=== PATIENT | male | born 1965 | race Caucasian/White ===

== ENCOUNTER 2018-12-30 09:59 | Emergency (ER) | payer BC, OTHER ==
[~2018-12-30] VITALS: Ht 190.5 cm; Wt 150.0 kg
[~2018-12-30 09:59] MED LIST: LOTENSIN10 MG PO; TOPROL XL50 MG PO
[2018-12-30 11:27] VITALS: BP 144/80; PULSE 63; TEMP 97.2
== END 2018-12-30 11:27 | disposition home or self-care (01) ==
LOC: COL.ER 09:59
DX: S00.01XA Abrasion of scalp, initial encounter (principal); I10 Essential (primary) hypertension; Z88.0 Allergy status to penicillin; Z98.890 Other specified postprocedural states; W22.8XXA Striking against or struck by other objects, initial encounter; Y92.009 Unspecified place in unspecified non-institutional (private) residence as the place of occurrence of the external cause

== ENCOUNTER 2019-03-25 05:56 | Day surgery (SDC) | payer BC, OTHER ==
[~2019-03-25] VITALS: Ht 190.5 cm; Wt 152.8 kg
[~2019-03-25 05:56] MED LIST changes: -LOTENSIN10 MG PO; +LOTENSIN20 MG PO; +TOPROL XL200 MG PO; -TOPROL XL50 MG PO
[2019-03-25 06:24] VITALS: BP 149/89; PULSE 62; TEMP 98
[2019-03-25] MEDS ORDERED: HCTZ12.5TAB PO (06:30)
[2019-03-25 08:05] VITALS: BP 155/80; PULSE 73
--- NOTE | 2019-03-25 08:05 | NUR ---
TO BAY 1 PER CART FROM ENDOSCOPY. ALERT ORIENTED X3, TALKING TO STAFF AND . AMBULATED TO RECLINER WITH ASSIST AND TOLERATED WELL. RECEIVED MUFFIN AND AGUSTINA.
[2019-03-25 08:20] VITALS: BP 142/72; PULSE 69
--- NOTE | 2019-03-25 08:20 | NUR ---
DR PADILLA TALKING TO PATIENT AND HIS .
[2019-03-25 08:35] VITALS: BP 148/70; PULSE 75
--- NOTE | 2019-03-25 08:35 | NUR ---
ATE 100% AND TOLERATED WELL.
--- NOTE | 2019-03-25 08:45 | NUR ---
RECEIVED DISCHARGE INSTRUCTIONS AND VERBALIZED UNDERSTANDING. DISCONTINUED IV AND INT- CATHETER INTACT.
--- NOTE | 2019-03-25 09:00 | NUR ---
DISCHARGED PER WC BY NURSING STAFF TO PRIVATE CAR IN CARE OF HIS DARLEEN.
== END 2019-03-25 09:11 | disposition home or self-care (01) ==
LOC: SDCO 05:56
DX: Z12.11 Encounter for screening for malignant neoplasm of colon (principal); Z83.71 Family history of colonic polyps; D12.2 Benign neoplasm of ascending colon; D12.4 Benign neoplasm of descending colon; D12.5 Benign neoplasm of sigmoid colon; I42.9 Cardiomyopathy, unspecified; I10 Essential (primary) hypertension; G47.33 Obstructive sleep apnea (adult) (pediatric); E66.9 Obesity, unspecified; Z68.41 Body mass index [BMI] 40.0-44.9, adult; K76.0 Fatty (change of) liver, not elsewhere classified; E11.9 Type 2 diabetes mellitus without complications; Z79.84 Long term (current) use of oral hypoglycemic drugs; Z79.899 Other long term (current) drug therapy
CPT/HCPCS: J0171; J2704; J7120

== ENCOUNTER 2019-04-25 08:19 | Day surgery (SDC) | payer BC, OTHER ==
[2019-04-25] VITALS (21 sets, daily range): BP systolic 126–190; BP diastolic 79–95; PULSE 56–69; TEMP 98.8
[~2019-04-25] VITALS: Ht 190.7 cm; Wt 153.0 kg
[~2019-04-25 08:19] MED LIST changes: +HCTZ12.5TAB PO
[2019-04-25] MEDS ORDERED: DEPO-TESTOS200 MG/M1 IM (08:59)
[2019-04-25 09:01] LABS: MEAN CELL VOLUME 87 fl (80.0-100.0); MEAN CORPUSCULAR HGB CONC 35 g/dl (33.0-37.0); MEAN PLATELET VOLUME 9.5 fl (7.4-10.4); PLATELET COUNT 179 K/mm3 (130-400); REDCELL DISTRIBUTION WIDTH-CV 12.6 % (11.5-14.5)
[2019-04-25 09:04] LABS: PROTHROMBIN TIME 11.2 SECONDS (9.7-12.8)
[2019-04-25 09:06] LABS: PARTIAL THROMBOPLASTIN TIME 34.4 SECONDS (26.0-37.0)
[2019-04-25 09:10] LABS: CALCIUM 9.8 mg/dL (8.4-10.2); CREATININE, serum 0.87 (0.66-1.25); POTASSIUM 4.5 mmol/L (3.4-5.0)
[2019-04-25 09:26] LABS: HEMATOCRIT 52.9 % (42.0-52.0); HEMOGLOBIN 18.4 g/dl (13.5-18.0); MEAN CORPUSCULAR HEMOGLOBIN 30 pg (27.0-31.0)
[2019-04-25] MEDS ORDERED: COLCRYS0.6 MG PO (09:35)
--- NOTE | 2019-04-25 10:43 | NUR ---
SEE MERGE FOR MEDICATION ADMINISTRATION TIMES AND INTRA AND POST SEDATION ASSESSMENTS.
--- NOTE | 2019-04-25 12:00 | NUR ---
Pt returned to EU 12 per bed s/p heart cath. Pt resting well, at bedside.
[2019-04-25] MEDS ORDERED: TIAZAC180 MG PO (12:01)
--- NOTE | 2019-04-25 13:30 | NUR ---
Pt yoel PO intake s n/v.
--- NOTE | 2019-04-25 16:15 | NUR ---
Pt up with assist after 4 hours bedrest. R groin site started bleeding when pt stood up. Pt instructed to lay down on the bed and manual pressure applied to R grion site.
--- NOTE | 2019-04-25 16:25 | NUR ---
Pressure held for 10 min and hemostasis achieved. R groin site redressed with gauze and tegaderm by Cary alanis from geophysical laboratory supervisor.
--- NOTE | 2019-04-25 17:12 | NUR ---
Report to Kishore Valente RN who assumed care at this time.
--- NOTE | 2019-04-25 17:15 | NUR ---
BS report received from Madyson RICHARDS. Pt resting supine with clean dry 4x4 dressing on groin, no bleeding or hematoma noted. hob elevated to 20 degrees. wctm
--- NOTE | 2019-04-25 20:20 | NUR ---
Pt is ready for discharge. after pt's period of bedrest which ended at 1930, pt was able to sit at edge of bed, stand, ambulate to br with steady gait with no evidence of bleeding or hematoma. pt sat at edge of bed and ate dinner, with no problem. groin dressing was changed using sterile technique as dressing was pinching groin together rather than lying flat on skin. site remained free of bleeding/hematoma. dc/rx and f/u instructions were reviewed with patient and who denies questions or concerns after discussion. writtent instructions were provided. IV was dc'd with cath intact, dressing was applied. PT was escorted to exit via wheelchair with .
== END 2019-04-25 21:00 | disposition home or self-care (01) ==
LOC: COL.CAR 08:19
PROVIDERS: Internal Medicine Cardiovascular Disease
DX: R94.39 Abnormal result of other cardiovascular function study (principal); I38 Endocarditis, valve unspecified; I10 Essential (primary) hypertension; I27.20 Pulmonary hypertension, unspecified
CPT/HCPCS: J1644; J2250; J3010; Q9967